=== PATIENT | male | born 1970 | race Caucasian/White ===

== ENCOUNTER 2017-10-29 10:39 | Emergency (ER) | payer SELFPAY ==
[~2017-10-29] VITALS: Ht 190.5 cm; Wt 135.3 kg
[2017-10-29 11:39] LABS: HEMATOCRIT 45.6 % (38.0-50.0); HEMOGLOBIN 15.2 G/DL (12.5-16.6); MCH 28.2 PG (29.0-34.0); MCHC 33.3 G/DL (30.0-36.0); MCV 84.6 FL (86-99); PLATELET COUNT 230 K/uL (156-360); RBC DIS.WIDTH-CV 13.2 % (11.8-14.6); RBC DIS.WIDTH-SD 40.5 % (39-53); RED BLOOD COUNT 5.39 M/uL (4.00-5.50); WHITE BLOOD COUNT 5.8 K/uL (4.1-10.2)
[2017-10-29 11:47] LABS: CHLORIDE 106 mEq/L (99-109); SODIUM 139 mEq/L (136-147)
[2017-10-29 11:48] LABS: GLUCOSE 109 mg/dL (70-99)
[2017-10-29 11:52] LABS: CREATININE 0.9 mg/dL (0.6-1.3)
[2017-10-29 11:53] LABS: UREA NITROGEN (BUN) 20 mg/dL (9-23)
[2017-10-29 11:54] LABS: GFR ESTIMATE (CALCULATED) > 59 mL/min/ (58.99-99999)
[2017-10-29 12:32] LABS: APPEARANCE CLEAR ((CLEAR)); BILIRUBIN NEGATIVE; BLOOD NEGATIVE; COLOR YELLOW ((YELLOW)); GLUCOSE (STRIP) NEGATIVE; KETONES NEGATIVE; LEUKOCYTES NEGATIVE; NITRITE NEGATIVE; PROTEIN (STRIP) NEGATIVE; SPECIFIC GRAVITY 1.023 (1.000-1.030); UCUL ADDED? NO; UROBILINOGEN 0.2 MG/DL (0.2-1.0)
[2017-10-29] MEDS ORDERED: NAPROSYN500 MG PO (14:09)
[2017-10-29] MEDS ORDERED: PERCOCET 5/31 TABLET PO (14:09)
[2017-10-29 14:39] VITALS: BP 150/83
== END 2017-10-29 14:41 | disposition home or self-care (01) ==
LOC: EME 10:39
DX: M54.5 Low back pain (principal); L84 Corns and callosities; M51.36 Other intervertebral disc degeneration, lumbar region; Z88.0 Allergy status to penicillin; Z88.1 Allergy status to other antibiotic agents; Z88.5 Allergy status to narcotic agent
CPT/HCPCS: 72110; 80048; 81003; 85027; 99281; 99284

== ENCOUNTER 2017-11-22 16:15 | Emergency (ER) | payer SELFPAY ==
[~2017-11-22] VITALS: Ht 190.5 cm; Wt 136.0 kg
[~2017-11-22 16:15] MED LIST: NAPROSYN500 MG PO; PERCOCET 5/31 TABLET PO
[2017-11-22 16:30] LABS: HEMATOCRIT 44.3 % (38.0-50.0); HEMOGLOBIN 15.1 G/DL (12.5-16.6); MCH 28.6 PG (29.0-34.0); MCHC 34.1 G/DL (30.0-36.0); MCV 83.9 FL (86-99); PLATELET COUNT 236 K/uL (156-360); RBC DIS.WIDTH-CV 13.2 % (11.8-14.6); RBC DIS.WIDTH-SD 40.5 % (39-53); RED BLOOD COUNT 5.28 M/uL (4.00-5.50); WHITE BLOOD COUNT 8.1 K/uL (4.1-10.2)
[2017-11-22 16:40] LABS: CHLORIDE 104 mEq/L (99-109); POTASSIUM 3.9 mEq/L (3.7-5.4); SODIUM 139 mEq/L (136-147)
[2017-11-22 16:41] LABS: GLUCOSE 102 mg/dL (70-99)
[2017-11-22 16:45] LABS: CREATININE 1.2 mg/dL (0.6-1.3); GFR ESTIMATE (CALCULATED) > 59 mL/min/ (58.99-99999)
[2017-11-22 16:46] LABS: UREA NITROGEN (BUN) 22 mg/dL (9-23)
[2017-11-22 17:45] LABS: APPEARANCE SL.HAZY ((CLEAR)); BILIRUBIN NEGATIVE; BLOOD NEGATIVE; COLOR AMBER ((YELLOW)); GLUCOSE (STRIP) NEGATIVE; KETONES 5; LEUKOCYTES NEGATIVE; NITRITE NEGATIVE; PROTEIN (STRIP) 30; SPECIFIC GRAVITY 1.031 (1.000-1.030); UROBILINOGEN 0.2 MG/DL (0.2-1.0)
[2017-11-22 17:58] LABS: ALBUMIN 4.4 g/dL (3.2-4.8)
[2017-11-22 18:01] LABS: TOTAL PROTEIN 7.9 g/dL (6.4-8.3)
[2017-11-22 18:03] LABS: TOTAL BILIRUBIN 0.7 mg/dL (0.0-1.0)
[2017-11-22 18:04] LABS: ALKALINE PHOSPHATASE 97 IU/L (3-129)
[2017-11-22 18:06] LABS: BACTERIA RARE /HPF; EPITHELIAL CELLS RARE /HPF; HYALINE CASTS 15-20 /LPF; MUCUS 4+ /LPF; RED BLOOD CELLS 0-5 /HPF (0-5); UCUL ADDED? NO; WHITE BLOOD CELLS 0-5 /HPF (0-5)
[2017-11-22 18:06] LABS: AST (GOT) 17 IU/L (2-34)
[2017-11-22 18:07] LABS: ALT (GPT) 20 IU/L (3-49); DIRECT BILIRUBIN 0.3 mg/dL (0.0-0.3)
[2017-11-22 18:08] LABS: LIPASE 17 U/L (1.0-51.0)
[2017-11-22] MEDS ORDERED: MEDROL DOSEPAK4 MG PO (18:48)
[2017-11-22] MEDS ORDERED: PERCOCET 5/31 TABLET PO (18:48)
[2017-11-22] MEDS ORDERED: SKELAXIN800 MG PO (18:48)
[2017-11-22 19:03] VITALS: BP 117/60
== END 2017-11-22 19:06 | disposition home or self-care (01) ==
LOC: EME 16:15
DX: N20.0 Calculus of kidney (principal); Z86.79 Personal history of other diseases of the circulatory system; Z88.5 Allergy status to narcotic agent; Z88.0 Allergy status to penicillin; Z88.1 Allergy status to other antibiotic agents; Z88.8 Allergy status to other drugs, medicaments and biological substances
CPT/HCPCS: 74176; 80048; 80076; 81003; 83690; 85027; 99281; 99285; J1885; J2405; J3010; J7030

== ENCOUNTER 2017-12-27 16:56 | Emergency (ER) | payer SELFPAY ==
[~2017-12-27] VITALS: Ht 185.4 cm; Wt 134.6 kg
[~2017-12-27 16:56] MED LIST changes: +MEDROL DOSEPAK4 MG PO; +SKELAXIN800 MG PO
[2017-12-27 17:19] LABS: HEMATOCRIT 44.3 % (38.0-50.0); HEMOGLOBIN 14.9 G/DL (12.5-16.6); MCH 28.6 PG (29.0-34.0); MCHC 33.6 G/DL (30.0-36.0); PLATELET COUNT 206 K/uL (156-360); RBC DIS.WIDTH-CV 13.5 % (11.8-14.6); RED BLOOD COUNT 5.21 M/uL (4.00-5.50); WHITE BLOOD COUNT 5.1 K/uL (4.1-10.2)
[2017-12-27 17:25] LABS: CHLORIDE 104 mEq/L (99-109); SODIUM 138 mEq/L (136-147)
[2017-12-27 17:27] LABS: GLUCOSE 105 mg/dL (70-99)
[2017-12-27 17:31] LABS: CREATININE 0.9 mg/dL (0.6-1.3); GFR ESTIMATE (CALCULATED) > 59 mL/min/ (58.99-99999); UREA NITROGEN (BUN) 18 mg/dL (9-23)
[2017-12-27 20:02] LABS: ALBUMIN 4.3 g/dL (3.2-4.8)
[2017-12-27 20:05] LABS: TOTAL PROTEIN 7.7 g/dL (6.4-8.3)
[2017-12-27 20:06] LABS: TOTAL BILIRUBIN 0.5 mg/dL (0.0-1.0)
[2017-12-27 20:06] LABS: APPEARANCE CLEAR ((CLEAR)); BILIRUBIN NEGATIVE; BLOOD NEGATIVE; COLOR YELLOW ((YELLOW)); GLUCOSE (STRIP) NEGATIVE; KETONES NEGATIVE; LEUKOCYTES NEGATIVE; NITRITE NEGATIVE; PROTEIN (STRIP) 30; SPECIFIC GRAVITY 1.032 (1.000-1.030); UCUL ADDED? NO; UROBILINOGEN 0.2 MG/DL (0.2-1.0)
[2017-12-27 20:07] LABS: ALKALINE PHOSPHATASE 93 IU/L (3-129)
[2017-12-27 20:10] LABS: AST (GOT) 17 IU/L (2-34); DIRECT BILIRUBIN 0.2 mg/dL (0.0-0.3)
[2017-12-27 20:11] LABS: ALT (GPT) 18 IU/L (3-49); LIPASE 109 U/L (1.0-51.0)
[2017-12-27] MEDS ORDERED: NORCO 7.5/321 TABLET PO (21:15)
[2017-12-27] MEDS ORDERED: MOTRIN800 MG PO (21:15)
[2017-12-27] MEDS ORDERED: ZOFRAN ODT8 MG PO (21:15)
[2017-12-27] MEDS ORDERED: TAMIFLU75 MG PO (21:15)
[2017-12-27 21:30] VITALS: BP 112/52
== END 2017-12-27 21:31 | disposition home or self-care (01) ==
LOC: EME 16:56
DX: K85.90 Acute pancreatitis without necrosis or infection, unspecified (principal); E86.0 Dehydration; J10.1 Influenza due to other identified influenza virus with other respiratory manifestations; R10.84 Generalized abdominal pain; Z87.442 Personal history of urinary calculi; Z88.5 Allergy status to narcotic agent; Z88.0 Allergy status to penicillin
CPT/HCPCS: 74176; 80048; 80076; 81003; 83690; 85027; 87502; 99281; 99284; J1885; J3010

== ENCOUNTER 2018-04-30 21:05 | Observation (INO) | payer SELFPAY ==
[~2018-04-30] VITALS: Ht 190.5 cm; Wt 138.4 kg
[~2018-04-30 21:05] MED LIST changes: +MOTRIN800 MG PO; +NORCO 7.5/321 TABLET PO; +TAMIFLU75 MG PO; +ZOFRAN ODT8 MG PO
[2018-04-30 21:56] LABS: BASOPHIL (%) 0.6 % (0-1); BASOPHIL COUNT 0.1 K/uL (0-0.1); EOSINOPHIL (%) 2.6 % (0-5); EOSINOPHIL COUNT 0.2 K/uL (0-0.3); HEMATOCRIT 41.4 % (38.0-50.0); HEMOGLOBIN 13.9 G/DL (12.5-16.6); IMMATURE GRANULOCYTE (%) 0.2 % (0.0-0.7); LYMPHOCYTE (%) 31.3 % (15-42); LYMPHOCYTE COUNT 2.8 K/uL (1.0-2.8); MCH 28.8 PG (29.0-34.0); MCHC 33.6 G/DL (30.0-36.0); MCV 85.7 FL (86-99); MONOCYTE (%) 10.7 % (3-12); NEUTROPHIL (%) 54.6 % (45-76); NEUTROPHIL COUNT 4.9 K/uL (1.8-6.4); PLATELET COUNT 236 K/uL (156-360); RBC DIS.WIDTH-CV 13.5 % (11.8-14.6); RBC DIS.WIDTH-SD 42.5 % (39-53); RED BLOOD COUNT 4.83 M/uL (4.00-5.50)
[2018-04-30 22:04] LABS: CHLORIDE 107 mEq/L (99-109); POTASSIUM 3.7 mEq/L (3.7-5.4); SODIUM 141 mEq/L (136-147)
[2018-04-30 22:06] LABS: GLUCOSE 105 mg/dL (70-99)
[2018-04-30 22:10] LABS: GFR ESTIMATE (CALCULATED) > 59 mL/min/ (58.99-99999)
[2018-04-30 22:11] LABS: UREA NITROGEN (BUN) 20 mg/dL (9-23)
[2018-04-30 22:16] LABS: TROP-I INTERPRETATION NEGATIVE; TROPONIN-I < 0.01 ng/mL (0.0-0.30)
[2018-04-30] MEDS ORDERED: LO-DOSE ASPIRIN81 M1 PO (23:20)
[2018-05-01 01:25] VITALS: BP 121/69
[2018-05-01 07:20] LABS: TROP-I INTERPRETATION NEGATIVE; TROPONIN-I < 0.01 ng/mL (0.0-0.30)
[2018-05-01 07:35] VITALS: BP 122/64
[2018-05-01 09:41] LABS: D-DIMER ELISA < 150.00 ng/mLDDU (<230)
[2018-05-01 10:59] LABS: HDL CHOLESTEROL 30 MG/DL (Desirable>=40); LDL CHOLESTEROL 84 mg/dL (Desirable<100); NON-HDL CHOLESTEROL 95 mg/dL (Desirable<160); TOTAL CHOLESTEROL 125 mg/dL (Desirable<200); TRIGLYCERIDES 54 MG/DL (Normal: <150)
[2018-05-01 12:08] VITALS: BP 119/79
[2018-05-01 12:39] LABS: TROP-I INTERPRETATION NEGATIVE; TROPONIN-I < 0.01 ng/mL (0.0-0.30)
[2018-05-01 13:36] LABS: HEMOGLOBIN A1c (GLYCOHEMOGLOB) 5.7 % (Below 5.7)
[2018-05-01] MEDS ORDERED: ATORVASTATIN CA40 MG PO (13:50)
== END 2018-05-01 15:17 | disposition home or self-care (01) ==
LOC: EME 21:05 → EDOF 05-01 00:14 → ENRESERV 05-01 00:18 → 4SOUTH 05-01 01:19
PROVIDERS: Emergency Medicine; Hospitalist; Nurse Practitioner Adult Health
DX: R07.9 Chest pain, unspecified (principal); I34.1 Nonrheumatic mitral (valve) prolapse; Z87.442 Personal history of urinary calculi; Z88.0 Allergy status to penicillin; Z88.5 Allergy status to narcotic agent; Z88.1 Allergy status to other antibiotic agents; Z88.8 Allergy status to other drugs, medicaments and biological substances; Z79.82 Long term (current) use of aspirin
CPT/HCPCS: 71046; 80048; 80061; 83036; 84484; 85025; 85379; 93005; 99281; 99285; G0378; J1885; J2405